=== PATIENT | male | born 1965 | race Caucasian/White ===

== ENCOUNTER → 2022-11-06 | Emergency (ER) | payer BC ==
[~2022-11-06] VITALS: Ht 180.3 cm; Wt 83.9 kg
[~2022-11-06] MED LIST: LEVETIRACETAM750 MG PO
== END | disposition home or self-care (01) ==
LOC: ER 15:16
DX: R56.9 Unspecified convulsions (principal); Z86.73 Personal history of transient ischemic attack (TIA), and cerebral infarction without residual deficits
CPT/HCPCS: 70551